=== PATIENT | male | born 1945 | race Caucasian/White ===

== ENCOUNTER → 2016-10-31 | Outpatient (CLI) | payer MEDICARE, BC ==
[~2016-10-31] MED LIST: ASPIRIN 81M81 MG/TA2 PO; CIPRO 500MG TA500 MG PO; COLACE 100100 MG/CAP PO; EPA FISH OIL1000 MG PO; ESCITALOPRAM; HCTZ; PERCOCET 5/321 UDTAB PO; SAME
== END ==
LOC: COL.LAB 15:44
DX: M79.89 Other specified soft tissue disorders (principal)

== ENCOUNTER 2021-10-11 15:41 | Emergency (ER) | payer MEDICARE, BC ==
[~2021-10-11] VITALS: Ht 172.7 cm; Wt 94.1 kg
[2021-10-11 15:57] VITALS: TEMP 97.6
[2021-10-11 16:34] LABS: BASO # 0.1 K/mm3 (0.0-0.2); BASO % 0.6 % (0.0-2.0); EOS # 0.1 K/mm3 (0.0-0.7); EOS % 1.5 % (0.0-4.0); GRAN # 5.4 K/mm3 (1.4-6.5); GRAN % 65.8 % (42.2-75.2); HEMATOCRIT 41.3 % (42.0-52.0); HEMOGLOBIN 14.4 g/dl (13.5-18.0); LYMPH # 1.7 K/mm3 (1.2-3.4); LYMPH % 21.3 % (20.0-51.0); MEAN CELL VOLUME 93 fl (80.0-100.0); MEAN CORPUSCULAR HEMOGLOBIN 32 pg (27-31); MEAN CORPUSCULAR HGB CONC 35 g/dl (33.0-37.0); MEAN PLATELET VOLUME 10.2 fl (7.4-10.4); MONO # 0.9 K/mm3 (0.1-0.6); MONO % 10.4 % (1.7-9.3); PLATELET COUNT 288 K/mm3 (130-400); RED BLOOD COUNT 4.45 M/mm3 (4.20-5.60); REDCELL DISTRIBUTION WIDTH-CV 12.2 % (11.5-14.5)
[2021-10-11 16:48] LABS: ALANINE AMINOTRANSFERASE 17 U/L (0-55); ALBUMIN 3.6 gm/dL (3.4-4.8); ALKALINE PHOSPHATASE 79 U/L (40-150); ANION GAP 14 mmol/L (7-16); AST,SGOT 11 U/L (5-34); BILIRUBIN,TOTAL 0.5 mg/dL (0.2-1.2); BLOOD UREA NITROGEN 17 mg/dL (8-26); CARBON DIOXIDE 23 mmol/L (23-31); CHLORIDE 102 mmol/L (98-107); CREATININE, serum 0.96 mg/dL (0.72-1.25); GLUCOSE 121 mg/dL (70-99); LIPASE 41 U/L (8-78); POTASSIUM 3.4 mmol/L (3.5-4.5); SODIUM 139 mmol/L (136-145); TOTAL PROTEIN 7.2 gm/dL (6.2-8.1)
[2021-10-11 16:56] LABS: TROPONIN-I < 0.010 ng/mL (0.00-0.033)
[2021-10-11 18:57] VITALS: BP 148/78; PULSE 76
== END 2021-10-11 18:57 | disposition home or self-care (01) ==
LOC: COL.ER 15:41
PROVIDERS: Personal Emergency Response Attendant
DX: R42 Dizziness and giddiness (principal); M10.9 Gout, unspecified; Z87.891 Personal history of nicotine dependence; Z79.52 Long term (current) use of systemic steroids; Z79.1 Long term (current) use of non-steroidal anti-inflammatories (NSAID)

== ENCOUNTER 2021-12-25 19:21 | Emergency (ER) | payer MEDICARE, BC ==
[~2021-12-25] VITALS: Ht 172.7 cm; Wt 88.6 kg
[2021-12-25 19:22] VITALS: TEMP 96.5
[2021-12-25] MEDS ORDERED: B-12 500 MCG (19:23)
[2021-12-25] MEDS ORDERED: ZYLOPRIM 100MG100 MG PO (19:24)
[2021-12-25] MEDS ORDERED: ZOCOR 20MG20 MG PO (19:24)
[2021-12-25] MEDS ORDERED: ZESTRIL 20MG TA20 MG PO (19:25)
[2021-12-25] MEDS ORDERED: PROSCAR 5MG5 MG PO (19:27)
[2021-12-25] MEDS ORDERED: PRILOSEC10 MG PO (19:27)
[2021-12-25] MEDS ORDERED: ZOLOFT 50MG50 MG PO (19:27)
[2021-12-25] MEDS ORDERED: ZESTORETIC 12.51 TA1 PO (19:29)
[2021-12-25 19:54] LABS: BASO % 0.3 % (0.0-2.0); GRAN # 5.6 K/mm3 (1.4-6.5); GRAN % 85.6 % (42.2-75.2); LYMPH # 0.5 K/mm3 (1.2-3.4); LYMPH % 7.9 % (20.0-51.0); MEAN CELL VOLUME 94 fl (80.0-100.0); MEAN CORPUSCULAR HEMOGLOBIN 31 pg (27-31); MEAN CORPUSCULAR HGB CONC 33 g/dl (33.0-37.0); MEAN PLATELET VOLUME 10.3 fl (7.4-10.4); MONO # 0.4 K/mm3 (0.1-0.6); MONO % 5.9 % (1.7-9.3); PLATELET COUNT 301 K/mm3 (130-400); RED BLOOD COUNT 4.48 M/mm3 (4.20-5.60); REDCELL DISTRIBUTION WIDTH-CV 12.7 % (11.5-14.5)
[2021-12-25 20:15] LABS: ALANINE AMINOTRANSFERASE 14 U/L (0-55); ALBUMIN 3.1 gm/dL (3.4-4.8); ALKALINE PHOSPHATASE 83 U/L (40-150); ANION GAP 17 mmol/L (7-16); AST,SGOT 10 U/L (5-34); BILIRUBIN,TOTAL 0.7 mg/dL (0.2-1.2); BLOOD UREA NITROGEN 15 mg/dL (8-26); CALCIUM 9.7 mg/dL (8.4-10.2); CARBON DIOXIDE 19 mmol/L (23-31); CHLORIDE 108 mmol/L (98-107); CREATININE, serum 0.73 mg/dL (0.72-1.25); GLUCOSE 160 mg/dL (70-99); POTASSIUM 3.5 mmol/L (3.5-4.5); SODIUM 144 mmol/L (136-145); TOTAL PROTEIN 7.4 gm/dL (6.2-8.1)
[2021-12-25 20:16] LABS: ALCOHOL(ethanol),MEDICAL < 10 mg/dL (0-10)
[2021-12-25 20:22] LABS: TROPONIN-I 0.014 ng/mL (0.00-0.033)
[2021-12-25 22:28] LABS: COLLECTION METHOD CLEAN CATCH
[2021-12-25 22:37] LABS: MUCOUS Present (NOT PRESENT); SQUAMOUS EPITHELIAL 0-2 /hpf (0-10); URINE APPEARANCE Hazy (CLEAR/HAZY); URINE BACTERIA Rare /hpf (NONE SEEN); URINE COLOR Amber (YELLOW); URINE RBC 0-2 /hpf (0-2)
[2021-12-25 22:38] LABS: PH 5.5 (5.0-8.5); URINE BLOOD Negative (NEGATIVE); URINE GLUCOSE Negative (NEGATIVE); URINE KETONE 4+ (NEGATIVE); URINE NITRATE Negative (NEGATIVE); URINE PROTEIN(semi-quant) 1+ (NEGATIVE)
[2021-12-26 00:03] VITALS: BP 148/87; PULSE 79
== END 2021-12-26 00:25 | disposition home or self-care (01) ==
LOC: COL.ER 19:21
PROVIDERS: Nurse Practitioner
DX: R11.2 Nausea with vomiting, unspecified (principal); R53.83 Other fatigue; Z87.891 Personal history of nicotine dependence
CPT/HCPCS: J2550; J7030; J7040

== ENCOUNTER 2023-06-14 02:20 | Emergency (ER) | payer MEDICARE, BC ==
[~2023-06-14] VITALS: Ht 172.7 cm; Wt 91.4 kg
[~2023-06-14 02:20] MED LIST changes: +B-12 500 MCG; +FLOMAX 0.40.4 MG/CAP PO; +PRILOSEC10 MG PO; +PROSCAR 5MG5 MG PO; +ZESTORETIC 12.51 TA1 PO; +ZESTRIL 20MG TA20 MG PO; +ZOCOR 20MG20 MG PO; +ZOLOFT 50MG50 MG PO; +ZYLOPRIM 100MG100 MG PO
[2023-06-14 02:24] VITALS: TEMP 97.5
[2023-06-14 03:17] LABS: BASO # 0.1 K/mm3 (0.0-0.2); BASO % 1.1 % (0.0-2.0); EOS # 0.2 K/mm3 (0.0-0.7); EOS % 4.1 % (0.0-4.0); GRAN # 3.1 K/mm3 (1.4-6.5); HEMATOCRIT 44.6 % (42.0-52.0); HEMOGLOBIN 15.2 g/dl (13.5-18.0); LYMPH # 1.5 K/mm3 (1.2-3.4); LYMPH % 26.9 % (20.0-51.0); MEAN CELL VOLUME 94 fl (80.0-100.0); MEAN CORPUSCULAR HEMOGLOBIN 32 pg (27-31); MEAN CORPUSCULAR HGB CONC 34 g/dl (33.0-37.0); MONO # 0.6 K/mm3 (0.1-0.6); MONO % 11.5 % (1.7-9.3); PLATELET COUNT 206 K/mm3 (130-400); RED BLOOD COUNT 4.75 M/mm3 (4.20-5.60); REDCELL DISTRIBUTION WIDTH-CV 12.6 % (11.5-14.5)
[2023-06-14 03:31] LABS: ALANINE AMINOTRANSFERASE 21 U/L (0-55); ALBUMIN 3.6 gm/dL (3.4-4.8); ALKALINE PHOSPHATASE 87 U/L (40-150); ANION GAP 12 mmol/L (7-16); AST,SGOT 15 U/L (5-34); BILIRUBIN,TOTAL 0.5 mg/dL (0.2-1.2); BLOOD UREA NITROGEN 15 mg/dL (8-26); CARBON DIOXIDE 18 mmol/L (23-31); CHLORIDE 112 mmol/L (98-107); CREATININE, serum 0.81 mg/dL (0.72-1.25); GLUCOSE 109 mg/dL (70-99); MAGNESIUM 2.1 mg/dL (1.6-2.6); POTASSIUM 3.7 mmol/L (3.5-4.5); SODIUM 142 mmol/L (136-145); TOTAL PROTEIN 6.5 gm/dL (6.2-8.1)
[2023-06-14 03:44] LABS: TROPONIN-I < 0.010 ng/mL (0.00-0.033)
[2023-06-14 04:48] VITALS: BP 133/86; PULSE 71
== END 2023-06-14 04:49 | disposition home or self-care (01) ==
LOC: COL.ER 02:20
PROVIDERS: Internal Medicine
DX: R42 Dizziness and giddiness (principal); R23.2 Flushing